=== PATIENT | female | born 1990 | race Caucasian/White ===

== ENCOUNTER 2021-02-03 16:35 | Emergency (ER) | payer BC, MEDICAID ==
[~2021-02-03] VITALS: Ht 165.1 cm; Wt 57.5 kg
[2021-02-03 17:02] VITALS: BP 129/86
[2021-02-03] MEDS ORDERED: ibuprofen 200mg tablet PO ONE (18:40)
[2021-02-03] MEDS ORDERED: sulfamethoxazole/trimethoprim DS (800/160mg) tablet PO ONE (18:40)
[2021-02-03] MEDS ORDERED: IBUP-1985 PO (18:43)
[2021-02-03] MEDS ORDERED: SULF1TAB49 PO (18:43)
== END 2021-02-03 19:06 | disposition home or self-care (01) ==
LOC: ER 16:36
DX: L03.115 Cellulitis of right lower limb (principal); R00.0 Tachycardia, unspecified; R07.89 Other chest pain; R11.0 Nausea; I50.9 Heart failure, unspecified; F15.90 Other stimulant use, unspecified, uncomplicated; Z86.14 Personal history of Methicillin resistant Staphylococcus aureus infection; Z72.89 Other problems related to lifestyle; Z91.012 Allergy to eggs; Z88.0 Allergy status to penicillin; Z88.1 Allergy status to other antibiotic agents; Z79.899 Other long term (current) drug therapy
CPT/HCPCS: 99283

== ENCOUNTER 2022-06-24 12:57 | Emergency (ER) | payer MEDICAID ==
[~2022-06-24] VITALS: Ht 162.6 cm; Wt 111.0 kg
[~2022-06-24 12:57] MED LIST: IBUP-1985 PO
[2022-06-24] MEDS ORDERED: normal saline 1000ML IV soln IVB ONE (13:05)
[2022-06-24 13:25] LABS: BASOPHILS % (AUTO) 0.7 % (0-1); EOSINOPHILS % (AUTO) 0.3 % (0-6); HEMATOCRIT 34.6 % (35.0-45.0); HEMOGLOBIN 11.7 g/dl (12.0-16.0); LYMPHOCYTES # (AUTO) 2.4 X10'3 (1.1-4.8); LYMPHOCYTES % (AUTO) 40.5 % (21-51); MEAN CORPUSCULAR HEMOGLOBIN 30.1 PG (27.0-31.0); MEAN CORPUSCULAR HGB CONC 33.9 g/dL (33.0-36.5); MEAN CORPUSCULAR VOLUME 88.7 FL (78-98); MEAN PLATELET VOLUME 6.4 FL (7.4-10.4); MONOCYTES # (AUTO) 0.4 X10'3 (0-0.9); MONOCYTES % (AUTO) 6.3 % (2-12); NEUTROPHILS % (AUTO) 52.2 % (42-75); PLATELET COUNT 360 X10'3 (140-440); RED CELL DISTRIBUTION WIDTH 13.7 % (11.5-14.5); WHITE BLOOD COUNT 5.8 X10'3 (4.5-11.0)
[2022-06-24 13:39] LABS: ALANINE AMINOTRANSFERASE 24 U/L (12-78); ALBUMIN 3.2 G/DL (3.4-5.0); ALBUMIN/GLOBULIN RATIO 0.7 (1.1-1.5); ALKALINE PHOSPHATASE 80 IU/L (46-116); ANION GAP 8 (8-16); ASPARTATE AMINO TRANSFERASE 22 U/L (10-37); BILIRUBIN,TOTAL 0.2 MG/DL (0.1-1.0); BLOOD UREA NITROGEN 9 MG/DL (7-18); BUN/CREATININE RATIO 12.3 (6.6-38.0); CALCIUM 7.3 MG/DL (8.5-10.1); CHLORIDE 109 MMOL/L (99-107); CREATININE 0.73 MG/DL (0.40-0.90); GLUCOSE 77 MG/DL (70-104); POTASSIUM 3.6 MMOL/L (3.5-5.1); SODIUM 141 MMOL/L (135-145); TOTAL CARBON DIOXIDE 24.3 MMOL/L (24-32); TOTAL PROTEIN 7.8 G/DL (6.4-8.2); eGFR > 90 ML/MIN
[2022-06-24 13:48] LABS: CLARITY,URINE CLEAR (Clear); COLOR,URINE YELLOW (Yellow); GLUCOSE, URINE NEGATIVE (Neg); KETONES,URINE NEGATIVE (Neg); LEUKOCYTE ESTERASE ,URINE NEGATIVE (Neg); NITRITES, URINE NEGATIVE (Neg); OCCULT BLOOD,URINE NEGATIVE (Neg); PH,URINE 5.5 (4.8-8.0); PROTEIN,URINE NEGATIVE (Neg); URINE HCG NEGATIVE (NEG); UROBILINOGEN,URINE 0.2 E.U/dL (0.2-1.0)
[2022-06-24 13:51] LABS: UA COLLECTION TYPE CLN CATCH MIDSTREAM
[2022-06-24 13:55] LABS: URINE AMPHETAMINE SCREEN POSITIVE (Neg); URINE BARBITUATE SCREEN NEGATIVE (Neg); URINE BENZODIAZEPINES SCREEN NEGATIVE (Neg); URINE CANNABINOID SCREEN NEGATIVE (Neg); URINE COCAINE SCREEN NEGATIVE (Neg); URINE METHADONE SCREEN NEGATIVE (Neg); URINE OPIATE SCREEN NEGATIVE (Neg); URINE PHENCYCLIDINE SCREEN NEGATIVE (Neg)
--- NOTE | 2022-06-24 14:37 | NUR ---
Pt d/c home in good condition, left before recieving instructions.
[2022-06-24 16:17] VITALS: BP 115/79
== END 2022-06-24 16:19 | disposition home or self-care (01) ==
LOC: ER 12:57
DX: I47.1 Supraventricular tachycardia (principal); R06.02 Shortness of breath; R07.9 Chest pain, unspecified; F15.10 Other stimulant abuse, uncomplicated; I50.9 Heart failure, unspecified; Z86.14 Personal history of Methicillin resistant Staphylococcus aureus infection; Z88.0 Allergy status to penicillin; Z88.1 Allergy status to other antibiotic agents; Z91.018 Allergy to other foods; Z79.1 Long term (current) use of non-steroidal anti-inflammatories (NSAID)
CPT/HCPCS: 36415; 71045; 80053; 80305; 81003; 81025; 83880; 84443; 85025; 93005; 96360; 99285; J7030

== ENCOUNTER 2023-09-05 10:14 | Emergency (ER) | payer MEDICAID ==
[~2023-09-05] VITALS: Ht 162.6 cm; Wt 56.8 kg
[2023-09-05 10:25] VITALS: BP 123/97; PULSE 121; RESP 18; TEMP 97.6; O2SAT 100
[2023-09-05 10:44] LABS: BASOPHILS % (AUTO) 0.3 % (0-1); EOSINOPHILS % (AUTO) 0.2 % (0-6); HEMATOCRIT 36.2 % (35.0-45.0); HEMOGLOBIN 12.1 g/dl (12.0-16.0); LYMPHOCYTES # (AUTO) 2.4 X10'3 (1.1-4.8); LYMPHOCYTES % (AUTO) 17.5 % (21-51); MEAN CORPUSCULAR HEMOGLOBIN 30.4 PG (27.0-31.0); MEAN CORPUSCULAR HGB CONC 33.3 g/dL (33.0-36.5); MEAN CORPUSCULAR VOLUME 91.3 FL (78-98); MEAN PLATELET VOLUME 6.4 FL (7.4-10.4); MONOCYTES # (AUTO) 0.8 X10'3 (0-0.9); MONOCYTES % (AUTO) 5.8 % (2-12); NEUTROPHILS # (AUTO) 10.3 X10'3 (1.8-7.7); NEUTROPHILS % (AUTO) 76.2 % (42-75); PLATELET COUNT 477 X10'3 (140-440); RED BLOOD COUNT 3.96 X10'6 (4.20-5.60); RED CELL DISTRIBUTION WIDTH 14.2 % (11.5-14.5); WHITE BLOOD COUNT 13.5 X10'3 (4.5-11.0)
[2023-09-05 10:57] LABS: ALANINE AMINOTRANSFERASE 25 U/L (12-78); ALBUMIN 3.4 G/DL (3.4-5.0); ALBUMIN/GLOBULIN RATIO 0.6 (1.1-1.5); ALKALINE PHOSPHATASE 95 IU/L (46-116); ANION GAP 5 (8-16); ASPARTATE AMINO TRANSFERASE 15 U/L (10-37); BILIRUBIN,TOTAL 0.2 MG/DL (0.1-1.0); BLOOD UREA NITROGEN 4 MG/DL (7-18); BUN/CREATININE RATIO 5.7 (10.0-20.0); CALCIUM 8.5 MG/DL (8.5-10.1); CHLORIDE 107 MMOL/L (99-107); GLUCOSE 73 MG/DL (70-104); POTASSIUM 3.2 MMOL/L (3.5-5.1); SODIUM 141 MMOL/L (135-145); TOTAL CARBON DIOXIDE 29.2 MMOL/L (24-32); TOTAL PROTEIN 8.8 G/DL (6.4-8.2); eCRCL 101 ML/MIN; eGFR > 90 ML/MIN
[2023-09-05 11:05] LABS: PRO BRAIN NATRIURETIC PEPTIDE < 30 PG/ML (0-125)
[2023-09-05] MEDS ORDERED: aspirin 325mg tablet PO ONE (12:30)
[2023-09-05] MEDS ORDERED: potassium Cl 20 mEq SR tablet PO STA (12:30)
== END 2023-09-05 13:52 | disposition left against medical advice (07) ==
LOC: ER 10:15
DX: R07.89 Other chest pain (principal); F14.10 Cocaine abuse, uncomplicated; E87.6 Hypokalemia; I50.9 Heart failure, unspecified; F15.90 Other stimulant use, unspecified, uncomplicated; Z88.0 Allergy status to penicillin; Z88.1 Allergy status to other antibiotic agents; Z91.012 Allergy to eggs
CPT/HCPCS: 36415; 71045; 80053; 83880; 84484; 85025; 93005; 99285

== ENCOUNTER 2023-10-02 02:52 | Emergency (ER) | payer MEDICAID ==
[~2023-10-02] VITALS: Ht 162.6 cm; Wt 56.8 kg
[2023-10-02 03:03] VITALS: BP 125/87; PULSE 104; RESP 17; TEMP 98.6; O2SAT 99
--- NOTE | 2023-10-02 03:32 | NUR ---
attempted to call patietn back from lobby to triage room to draw pt blood. pt stated "Im leaving, I would rather go to [place] and get treated instead, so I'm leaving and going down there". advised pt to stay. pt visitor to drive pt. pt ambulated out of lobby with visitor, no s/s of distress.
== END 2023-10-02 04:26 | disposition left against medical advice (07) ==
LOC: ER 02:52
DX: F41.9 Anxiety disorder, unspecified (principal); R06.02 Shortness of breath; Z53.21 Procedure and treatment not carried out due to patient leaving prior to being seen by health care provider
CPT/HCPCS: 71045; 93005; 99281